=== PATIENT | female | born 1985 | race Caucasian/White ===

== ENCOUNTER → 2017-10-16 | Outpatient (CLI) | payer OTHER | END | disposition home or self-care (01) | LOC: C.LABBC 07:34 | PROVIDERS: ATTEND Nurse Practitioner Family | DX: Z13.220 Encounter for screening for lipoid disorders (principal); Z83.49 Family history of other endocrine, nutritional and metabolic diseases; Z13.1 Encounter for screening for diabetes mellitus ==